=== PATIENT | female | born 1950 | race Two or more races ===

== ENCOUNTER 2020-09-07 03:00 | Emergency (ER) | payer MEDICARE ==
[~2020-09-07] VITALS: Ht 165.1 cm; Wt 74.8 kg
[2020-09-07 05:09] LABS: Basophils # (auto) 0 10 ^3/uL (0-0.2); Basophils % (auto) 0.3 % (0.0-2.0); Eosinophils # (auto) 0.1 10 ^3/uL (0-0.8); Eosinophils % (auto) 1.9 % (0.0-7.0); Hematocrit 39.7 % (36.0-46.0); Hemoglobin 13.6 g/dL (12.2-16.2); Lymphocytes # (auto) 1.2 10 ^3/uL (0.4-5.4); Lymphocytes % (auto) 25.5 % (10.0-50.0); Mean Corpuscular Hgb Conc. 34.3 g/dL (32.0-36.0); Mean Corpuscular Volume 90.5 fL (80.0-100.0); Monocytes # (auto) 0.5 10 ^3/uL (0-1.3); Neutrophils % (auto) 62.3 % (37.0-80.0); Nucleated Red Blood Cells % 0.1 %; Platelet Count (auto) 230 10^3/uL (140-450); Red Blood Cells 4.39 10^6/uL (4.0-5.20); Red Cell Distribution Width 13.4 % (11.8-14.3); White Blood Cell 4.8 10^3/uL (4.4-10.8)
[2020-09-07 05:32] LABS: Albumin 4.1 g/dL (3.4-5.0); Anion Gap 7 (5-15); Blood Urea Nitrogen 21 mg/dL (7-18); Calcium 10.2 mg/dL (8.5-10.1); Carbon Dioxide 26 mmol/L (21-32); Chloride 108 mmol/L (98-107); Glucose 151 mg/dL (74-106); Potassium 3.8 mmol/L (3.5-5.1); Sodium 141 mmol/L (136-145)
[2020-09-07 05:38] LABS: Alanine Aminotransferase 23 U/L (13-56); Alkaline Phosphatase 77 U/L (45-117); Aspartate Aminotransferase 17 U/L (15-37); BUN/Creatinine Ratio 23.3; Bilirubin, Total 0.7 mg/dL (0.2-1.0); GFR African American 79 mL/min; GFR Non-African American 66 mL/min; Total Protein 6.9 g/dL (6.4-8.2)
[2020-09-07] MEDS ORDERED: ASPirin 81 mg TAB PO ONE (08:45)
[2020-09-07] MEDS ORDERED: SODIUM CHLORIDE 0.9% 1,000 ML IV ONE (08:45)
[2020-09-07 11:24] LABS: Urine Bacteria NONE SEEN /hpf (None Seen); Urine Blood 1+ /uL (Negative); Urine Mucus FEW (None Seen); Urine Specific Gravity 1.018 (1.001-1.035); Urine WBC 1 /hpf (0 - 5)
[2020-09-07 12:04] VITALS: BP 120/70
== END 2020-09-07 12:07 | disposition home or self-care (01) ==
LOC: ER 03:04
DX: I10 Essential (primary) hypertension (principal); R07.89 Other chest pain; E11.9 Type 2 diabetes mellitus without complications; K21.9 Gastro-esophageal reflux disease without esophagitis; Z88.5 Allergy status to narcotic agent
CPT/HCPCS: 36415; 71045; 80053; 81001; 83735; 84443; 84484; 85025; 93005; 96360; 96361